=== PATIENT | male | born 1960 | race Caucasian/White ===

== ENCOUNTER 2018-03-30 10:01 | Inpatient (IN) | payer BC, OTHER | END 2018-03-30 10:56 | disposition left against medical advice (07) | DRG 894 | LOC: SRC 10:25 | PROVIDERS: ADMIT Internal Medicine; ATTEND Internal Medicine | DX: F19.239 Other psychoactive substance dependence with withdrawal, unspecified (principal); Z75.3 Unavailability and inaccessibility of health-care facilities ==